=== PATIENT | female | born 1950 | race Caucasian/White ===

== ENCOUNTER 2017-10-21 10:29 | Emergency (ER) | payer MEDICARE ==
[2017-10-21 10:41] VITALS: RESP 18
--- NOTE | 2017-10-21 11:27 | XR ---
EXAMINATION TYPE: XR ankle complete LT , 3 VIEWS DATE OF EXAM ORDERED: 10/21/2017 HISTORY: Pain. COMPARISON: None. FINDINGS: No fracture, dislocation or ankle joint effusion is seen. IMPRESSION: NORMAL LEFT ANKLE.
--- NOTE | 2017-10-21 11:54 | ED ---
General Adult HPI - General Chief complaint: Extremity Injury, Lower Stated complaint: Fall Time Seen by Provider: 10/21/17 10:55 Source: patient, RN notes reviewed, old records reviewed Mode of arrival: wheelchair Limitations: no limitations - History of Present Illness Initial comments: This is a 67-year-old female the ER for evaluation of ankle pain left ankle pain. No significant history of ankle issues prior. Patient had a trip and fall last night down stairs, just was her ankle while going downstairs with her dog. Patient did not fall to ground, had some pain when ambulatory this morning has she thought she could sleep it off. No Motrin or Tylenol for pain. No other injuries noted - Related Data Home Medications Medication Instructions Recorded Confirmed Cholecalciferol [Vitamin D3] 2,000 unit PO DAILY 05/12/16 07/06/16 Flaxseed Oil 1,500 mg PO DAILY 05/12/16 07/06/16 Glucosamine Sulfate 500 mg PO BID 05/12/16 07/06/16 Allergies Allergy/AdvReac Type Severity Reaction Status Date / Time No Known Allergies Allergy Verified 10/21/17 10:41 Review of Systems ROS Statement: Those systems with pertinent positive or pertinent negative responses have been documented in the HPI. ROS Other: All systems not noted in ROS Statement are negative. Past Medical History Past Medical History: GERD/Reflux Additional Past Medical History / Comment(s): HISTORY OF PREVIOUS BRAIN ANEURYSM , describes pain worse than heartburn, stress incontinence History of Any Multi-Drug Resistant Organisms: None Reported Additional Past Surgical History / Comment(s): BRAIN SURGERY FOR ANEURYSM with clip Past Anesthesia/Blood Transfusion Reactions: No Reported Reaction Past Psychological History: No Psychological Hx Reported Smoking Status: Never smoker Past Alcohol Use History: Occasional Past Drug Use History: None Reported - Past Family History Mother Family Medical History: Cancer Additional Family Medical History / Comment(s): lung cancer Brother(s) Family Medical History: Diabetes Mellitus, Myocardial Infarction ([place]) Sister(s) Family Medical History: Diabetes Mellitus General Exam - General Exam Comments Initial Comments: Left lateral malleolus tenderness Limitations: no limitations General appearance: alert, in no apparent distress Head exam: Present: atraumatic, normocephalic, normal inspection Eye exam: Present: normal appearance, PERRL, EOMI. Absent: scleral icterus, conjunctival injection, periorbital swelling ENT exam: Present: normal exam, mucous membranes moist Neck exam: Present: normal inspection. Absent: tenderness, meningismus, lymphadenopathy Respiratory exam: Present: normal lung sounds bilaterally. Absent: respiratory distress, wheezes, rales, rhonchi, stridor Cardiovascular Exam: Present: regular rate, normal rhythm, normal heart sounds. Absent: systolic murmur, diastolic murmur, rubs, gallop, clicks GI/Abdominal exam: Present: soft, normal bowel sounds. Absent: distended, tenderness, guarding, rebound, rigid Extremities exam: Present: normal inspection, full ROM, normal capillary refill. Absent: tenderness, pedal edema, joint swelling, calf tenderness Back exam: Present: normal inspection Neurological exam: Present: alert, oriented X3, CN II-XII intact Psychiatric exam: Present: normal affect, normal mood Skin exam: Present: warm, dry, intact, normal color. Absent: rash Course Vital Signs 10/21/17 10:37 Temperature 97.9 F Pulse Rate 89 Respiratory 18 Rate Blood Pressure 132/63 O2 Sat by Pulse 98 Oximetry Medical Decision Making - Medical Decision Making 67 female the ER for evaluation of ankle pain left ankle pain x-ray negative for fracture, given ankle brace and discharged home - Radiology Data Radiology results: report reviewed (X-ray left ankle negative), image reviewed Disposition Clinical Impression: Left ankle sprain Disposition: HOME SELF-CARE Condition: Good Instructions: Ankle Sprain (ED) Referrals: Derrick Garcia MD [Primary Care Provider] - 1-2 days
[2017-10-21 12:50] VITALS: BP 124/66; PULSE 82; TEMP 98.1
== END 2017-10-21 12:51 | disposition home or self-care (01) ==
LOC: EC 10:29
DX: S93.402A Sprain of unspecified ligament of left ankle, initial encounter (principal); Z79.899 Other long term (current) drug therapy; W10.9XXA Fall (on) (from) unspecified stairs and steps, initial encounter; Y93.K1 Activity, walking an animal
CPT/HCPCS: 99284

== ENCOUNTER → 2019-01-31 | Outpatient (CLI) | payer MEDICARE ==
--- NOTE | 2019-01-31 07:48 | US ---
EXAMINATION TYPE: US abdomen complete DATE OF EXAM: 01/31/2019 COMPARISON: 2016 CLINICAL HISTORY: R10.13 EPIGASTRIC PAIN,R74.0 TRANSAMINASEMIA. EXAM MEASUREMENTS: Liver Length: 10.0 cm Gallbladder Wall: 0.2 cm CBD: 0.2 cm Spleen: 9.4 cm Right Kidney: 9.3 x 3.7 x 3.4 cm Left Kidney: 9.3 x 4.6 x 4.4 cm Pancreas: Tail obscured by overlying bowel gas Liver: wnl intercostally scanned Gallbladder: wnl Evidence for sonographic Rivera's sign: CBD: wnl Spleen: wnl Right Kidney: wnl Left Kidney: wnl Upper IVC: wnl Abd Aorta: wnl The visualized liver remains heterogeneously hyperechoic. Evaluation for focal masses or suboptimal d ue to the heterogeneity. The intrahepatic portion of the IVC and visualized abdominal aorta are withi n normal limits. There is no evidence of shadowing mobile cholelithiasis. Common bile duct is unrem arkable. The visualized portions of the pancreas are homogenous. The spleen is unremarkable. Kidne ys are symmetric and free of hydronephrosis. No renal lesions are seen on images saved. IMPRESSION: Diffuse fatty infiltration of liver redemonstrated.
== END | disposition home or self-care (01) ==
LOC: RADUSWWP 06:46
PROVIDERS: ATTEND Internal Medicine
DX: K76.0 Fatty (change of) liver, not elsewhere classified (principal); R74.0 Nonspecific elevation of levels of transaminase and lactic acid dehydrogenase [LDH]
CPT/HCPCS: 76700

== ENCOUNTER → 2020-02-12 | Outpatient (CLI) | payer MEDICARE ==
--- NOTE | 2020-02-12 14:40 | US ---
EXAMINATION TYPE: US liver DATE OF EXAM: 02/12/2020 COMPARISON: US 01/31/2019 CLINICAL HISTORY: Elevated live enzymes R94.05. Epigastric pain. Difficult and limited exam due to ov erlying bowel gas EXAM MEASUREMENTS: Liver Length: 13.8 cm Gallbladder Wall: 0.2 cm CBD: 0.6 cm Right Kidney: 9.2 x 3.9 x 4.6 cm Pancreas: Obscured by bowel gas Liver: Heterogeneous, coarse echotexture Gallbladder: wnl Evidence for sonographic Rivera's sign: No CBD: wnl as visualized Right Kidney: No hydronephrosis or masses seen IMPRESSION: 1. Visualized abdomen ultrasound is unremarkable.
== END | disposition home or self-care (01) ==
LOC: RADUSWWP 09:52
PROVIDERS: ATTEND Internal Medicine
DX: R94.5 Abnormal results of liver function studies (principal)
CPT/HCPCS: 76705

== ENCOUNTER → 2021-01-14 | Outpatient (CLI) | payer MEDICARE ==
--- NOTE | 2021-01-14 11:13 | CT ---
EXAMINATION TYPE: CT abdomen pelvis wo con DATE OF EXAM: 01/14/2021 COMPARISON: None HISTORY: 70-year-old female R10.9, left-sided flank pain CT DLP: 645 mGycm. Automated exposure control for dose reduction was used. TECHNIQUE: Contiguous axial scanning of the abdomen and pelvis without IV contrast. Coronal and sagit staci reconstructions performed. FINDINGS: Heart normal size without pericardial effusion. Some strandy atelectasis in lower lungs. No pleural e ffusion. Tiny hiatal hernia. Slightly low-attenuation of the hepatic parenchyma may reflect mild fatty infiltration. Otherwise, no ncontrast appearance of the gallbladder, adrenal glands, spleen, and pancreas within normal limits. T iny hilar splenule. Punctate 2 mm right upper pole renal calculus. Mild left-sided pelvocaliectasis. Suggestion of a tiny 1 mm mid left ureteral calculus, axial images 97. Possible 2 mm distal left ureteral calculus, axial image 136. No dilated small bowel, free fluid, or free air. No mesenteric or retroperitoneal lymphadenopathy. Mild stool in the colon. Normal appendix. Mild circumference wall thickening along the transverse col on suspected to be secondary to adherent stool material. Mild circumferential bladder wall thickening. Numerous pelvic fluid. Uterus anteverted. Both ovaries are visualized. No abnormal fluid collection in the pelvis or pelvic lymphadenopathy. Bones: Mild degenerative change at the hips. No osseous destructive process. IMPRESSION: 1. A tiny 1 mm mid left ureteral calculus and a second tiny 2 mm distal left ureteral calculus. Some left-sided pelvicaliectasis suggests very mild obstructive uropathy. 2. Punctate nonobstructive 2 mm right renal calculus. 3. Mild circumferential bladder wall thickening. This may be chronic for the patient. Correlate to e xclude cystitis.
== END | disposition home or self-care (01) ==
LOC: RADCTMAIN 08:29
PROVIDERS: ATTEND Internal Medicine
DX: N20.2 Calculus of kidney with calculus of ureter (principal); N28.89 Other specified disorders of kidney and ureter; N32.89 Other specified disorders of bladder
CPT/HCPCS: 74176

== ENCOUNTER → 2021-03-08 | Outpatient (CLI) | payer MEDICARE ==
--- NOTE | 2021-03-09 07:10 | US ---
EXAMINATION TYPE: US kidneys/renal and bladder DATE OF EXAM: 03/08/2021 COMPARISON: 01/14/2021, 02/12/2020 CLINICAL HISTORY: N20.1 Calculus of ureter. No pain per patient. EXAM MEASUREMENTS: Right Kidney: 8.9 x 4.5 x 4.0 cm Left Kidney: 10.8 x 4.2 x 4.5 cm Right Kidney: Appears smaller in size compared to contralateral kidney. Left Kidney: Upper pole cystic lesion in renal sinus= 0.9 x 0.9 x 0.9 cm. Bladder: distended, no wall thickening seen Bilateral Jets not seen IMPRESSION: No hydronephrosis or nephrolithiasis by ultrasound. Small hypoechoic lesion in the left renal sinus t oo small to characterize.
== END | disposition home or self-care (01) ==
LOC: RADUSWWP 16:13
PROVIDERS: ATTEND Urology
DX: N20.1 Calculus of ureter (principal)
CPT/HCPCS: 76770

== ENCOUNTER → 2021-12-29 | Outpatient (CLI) | payer MEDICARE ==
--- NOTE | 2021-12-29 10:48 | XR ---
KUB HISTORY: Calculus of kidney, left-sided pain Frontal KUB and 2 images, correlation to CT scan dated 02/03/2021 Overlying bowel gas may obscure detail. There are multiple calcifications seen within the pelvis many of which represent phleboliths. Difficult to exclude a distal left ureteral calculus. No evident bow el obstruction or pneumoperitoneum. Bone mineralization is normal. IMPRESSION: Indeterminate pelvic calcifications
== END | disposition home or self-care (01) ==
LOC: RADXRMAIN 09:55
PROVIDERS: ATTEND Urology
DX: N20.0 Calculus of kidney (principal)
CPT/HCPCS: 74018

== ENCOUNTER → 2022-02-17 | Outpatient (CLI) | payer MEDICARE ==
--- NOTE | 2022-02-17 16:26 | XR ---
Right shoulder HISTORY: Pain, limited range of motion 2 views the right shoulder Bone mineralization is reduced. Acromioclavicular joint shows arthropathy. Right lung apex as visuali zed shows some apical pleural thickening. No fracture or dislocation. IMPRESSION: There is some acromioclavicular joint arthropathy.
== END | disposition home or self-care (01) ==
LOC: RADXRMAIN 15:55
PROVIDERS: ATTEND Internal Medicine
DX: M19.011 Primary osteoarthritis, right shoulder (principal)

== ENCOUNTER → 2022-03-03 | Outpatient (CLI) | payer MEDICARE ==
[2022-03-03 13:29] VITALS: BMI 24.4
== END ==
LOC: DBWHC3 11:45
PROVIDERS: ATTEND Internal Medicine
DX: E11.9 Type 2 diabetes mellitus without complications (principal)
CPT/HCPCS: G0108 ×3

== ENCOUNTER 2023-01-28 20:41 | Emergency (ER) | payer MEDICARE ==
[2023-01-28 21:03] VITALS: BP 147/84; PULSE 79; RESP 18; TEMP 98.4
[2023-01-28] MEDS ORDERED: predniSONE 20 MG TAB PO STA (21:26)
[2023-01-28] MEDS ORDERED: FAMOTIDINE 20 MG TAB PO STA (21:26)
--- NOTE | 2023-01-28 21:28 | ED ---
General Adult HPI - General Chief complaint: Skin/Abscess/Foreign Body Stated complaint: Rash on back, legs, and arms Time Seen by Provider: 01/28/23 21:10 Source: patient Mode of arrival: ambulatory Limitations: no limitations - History of Present Illness Initial comments: 72-year-old female presents emergency department reporting rash. States it's be en going on since yesterday. She went to an urgent care where they prescribed her Diflucan and Clomitrazole. She took the Diflucan and used the cream however she took a nap and woke up with more lesions. She states that they are pruritic. She has been taking Benadryl. Denies any new exposures. No new foods, bath products. No history of ALLERGIES. Denies any nausea or vomiting. No cough or shortness of breath. No other alleviating, precipitating or modifying factors - Related Data Home Medications Medication Instructions Recorded Confirmed Cholecalciferol [Vitamin D3] 2,000 unit PO DAILY 05/12/16 07/06/16 Flaxseed Oil 1,500 mg PO DAILY 05/12/16 07/06/16 Glucosamine Sulfate 500 mg PO BID 05/12/16 07/06/16 Previous Rx's Medication Instructions Recorded predniSONE [Deltasone] 20 mg PO BID #10 tab 01/28/23 Allergies Allergy/AdvReac Type Severity Reaction Status Date / Time No Known Allergies Allergy Verified 01/28/23 21:03 Review of Systems ROS Statement: Those systems with pertinent positive or pertinent negative responses have been documented in the HPI. ROS Other: All systems not noted in ROS Statement are negative. Past Medical History Past Medical History: Diabetes Mellitus, GERD/Reflux Additional Past Medical History / Comment(s): HISTORY OF PREVIOUS BRAIN ANEURYSM, describes pain worse than heartburn, stress incontinence History of Any Multi-Drug Resistant Organisms: None Reported Additional Past Surgical History / Comment(s): BRAIN SURGERY FOR ANEURYSM with clip Past Anesthesia/Blood Transfusion Reactions: No Reported Reaction Past Psychological History: Anxiety Smoking Status: Never smoker Past Alcohol Use History: Occasional Past Drug Use History: None Reported - Past Family History Mother Family Medical History: Cancer Additional Family Medical History / Comment(s): lung cancer Brother(s) Family Medical History: Diabetes Mellitus, Myocardial Infarction ([place]) Sister(s) Family Medical History: Diabetes Mellitus General Exam Limitations: no limitations General appearance: alert, in no apparent distress Eye exam: Present: normal appearance, PERRL, EOMI. Absent: scleral icterus, conjunctival injection, periorbital swelling ENT exam: Present: normal exam, mucous membranes moist Respiratory exam: Present: normal lung sounds bilaterally. Absent: respiratory distress, wheezes, rales, rhonchi, stridor Neurological exam: Present: alert, oriented X3, CN II-XII intact Psychiatric exam: Present: normal affect, normal mood Skin exam: Present: rash (hives on abdomen, chest, few on arms) Course Vital Signs 01/28/23 20:59 Temperature 98.4 F Pulse Rate 79 Respiratory 18 Rate Blood Pressure 147/84 O2 Sat by Pulse 96 Oximetry Medical Decision Making - Medical Decision Making Was pt. sent in by a medical professional or institution (, PA, HAND ROLLER, urgent care, hospital, or half-way...) When possible be specific @ -No Did you speak to anyone other than the patient for history (EMS, parent, family, police, friend...)? What history was obtained from this source @ -No Did you review nursing and triage notes (agree or disagree)? Why? @ -I reviewed and agree with nursing and triage notes Were old charts reviewed (outside hosp., previous admission, EMS record, old EKG, old radiological studies, urgent care reports/EKG's, half-way records)? Report findings @ -No old charts were reviewed Differential Diagnosis (chest pain, altered mental status, abdominal pain women, abdominal pain men, vaginal bleeding, weakness, fever, dyspnea, syncope, headache, dizziness, GI bleed, back pain, seizure, CVA, palpatations, mental health, musculoskeletal)? @ -hives, shingles, ringworm, impetigo EKG interpreted by me (3pts min.). @ -Not done X-rays interpreted by me (1pt min.). @ -None done CT interpreted by me (1pt min.). @ -None done U/S interpreted by me (1pt. min.). @ -None done What testing was considered but not performed or refused? (CT, X-rays, U/S, labs)? Why? @ -None What meds were considered but not given or refused? Why? @ -None Did you discuss the management of the patient with other professionals (professionals i.e. , PA, HAND ROLLER, lab, RT, psych nurse, social studies teacher, manager online, teacher, nuclear officer, case making machine operator)? Give summary @ -No Was smoking cessation discussed for >3mins.? @ -No Was critical care preformed (if so, how long)? @ -No Were there social determinants of health that impacted care today? How? (Homelessness, low income, unemployed, alcoholism, drug addiction, transportation, low edu. Level, literacy, decrease access to med. care, usp, rehab)? @ -No Was there de-escalation of care discussed even if they declined (Discuss DNR or withdrawal of care, Hospice)? DNR status @ -No What co-morbidities impacted this encounter? (DM, HTN, Smoking, COPD, CAD, Cancer, CVA, ARF, Chemo, Hep., AIDS, mental health diagnosis, sleep apnea, morbid obesity)? @ -None Was patient admitted / discharged? Hospital course, mention meds given and route, prescriptions, significant lab abnormalities, going to OR and other pertinent info. @ -Upon arrival patient was placed into room 33. A thorough history and physical exam was performed. Patient's rash is consistent with urticaria. She is given a dose of prednisone. She'll be discharged home on 5 days of steroids. Instructed to continue taking Benadryl every 6 hours. Follow-up with her primary care doctor. May need to see an resident care provider if her symptoms continue and return for any new or worsening symptoms for patient was agreeable to plan and she was discharged in stable condition Undiagnosed new problem with uncertain prognosis? @ -No Drug Therapy requiring intensive monitoring for toxicity (Heparin, Nitro, Insulin, Cardizem)? @ -No Were any procedures done? @ -No Diagnosis/symptom? @ -acute contact dermatitis Acute, or Chronic, or Acute on Chronic? @ -acute Uncomplicated (without systemic symptoms) or Complicated (systemic symptoms)? @ -uncomplicated Side effects of treatment? @ -No Exacerbation, Progression, or Severe Exacerbation? @ -No Poses a threat to life or bodily function? How? (Chest pain, [place], [place], pneumonia, PE, COPD, DKA, ARF, appy, cholecystitis, CVA, Diverticulitis, Homicidal, Suicidal, threat to staff... and all critical care pts) @ -No Disposition Clinical Impression: Contact dermatitis Disposition: HOME SELF-CARE Condition: Stable Instructions (If sedation given, give patient instructions): Contact Dermatitis (ED) Additional Instructions: Continue taking Benadryl every 6 hours. Start taking the steroids twice a day starting tomorrow. Keep a log as to what you're exposed to. Follow-up with your doctor in 2-4 days and return for any new or worsening symptoms Prescriptions: predniSONE [Deltasone] 20 mg PO BID #10 tab Is patient prescribed a controlled substance at d/c from ED?: No Referrals: Karine Davis MD [Primary Care Provider] - 1-2 days Time of Disposition: 21:28
== END 2023-01-28 21:40 | disposition home or self-care (01) ==
LOC: EC 20:41
DX: L25.9 Unspecified contact dermatitis, unspecified cause (principal); E11.9 Type 2 diabetes mellitus without complications; F41.9 Anxiety disorder, unspecified; Z79.899 Other long term (current) drug therapy
CPT/HCPCS: 99282; J7512

== ENCOUNTER → 2023-07-24 | Outpatient (CLI) | payer MEDICARE ==
--- NOTE | 2023-07-26 20:41 | MR ---
EXAMINATION TYPE: MR liver wo/w con DATE OF EXAM: 07/24/2023 2:19 PM CLINICAL INDICATION:Female, 73 years old with history of K76.0 fatty liver disease, Non-alcoholic fat ty liver disease. COMPARISON: CT scan abdomen from 01/14/2021. Ultrasound 03/08/2021. TECHNIQUE: Multiplanar multi-sequence imaging was performed without contrast. Post contrast imaging was performed. Post IV contrast subtraction images were also submitted for review. IV Contrast: 6 cc Gadavist FINDINGS: LOWER CHEST: No gross irregularity. ABDOMEN Liver: No evidence for hepatic cirrhosis. Signal dropout on chemical shift imaging compatible with co nvexed steatosis. No arterial phase enhancing lesions identified. No observation that needs HCC crite luis e.. High T2 signal cyst in the left hepatic lobe measuring 3 mm. Gallbladder and Bile ducts: No evidence for ductal dilation, or biliary stricture or evidence of chol edocholithiasis. The gallbladder is within normal limits. Pancreas: No ductal dilation. No evidence for solid mass. Spleen: Normal for size. Adrenal glands: Unremarkable. Kidneys: Left renal sinus lesion seen on prior ultrasound is felt to correlate with parapelvic renal cyst. No suspicious left renal masses. No evidence for obstructive uropathy. No suspicious renal mass es. Peripelvic renal cysts on the left. There is extrarenal pelves bilaterally. Stomach and Bowel: No evidence for bowel wall thickening or evidence for obstruction.. Peritoneum: No evidence of pneumoperitoneum or free fluid. Vasculature: No aortic aneurysm. Musculoskeletal: The osseous structures appear intact. Lymph Nodes: No gross evidence for lymphadenopathy. Abdominal wall: Unremarkable. IMPRESSION: 1. No solid renal neoplasms. 2. Mild hepatic steatosis without evidence for suspicious observation period
== END | disposition home or self-care (01) ==
LOC: RADMRIMAIN 13:22
PROVIDERS: ATTEND Internal Medicine
DX: K76.0 Fatty (change of) liver, not elsewhere classified (principal)
CPT/HCPCS: 74183; A9585

== ENCOUNTER → 2024-02-20 | Outpatient (CLI) | payer MEDICARE | END | disposition home or self-care (01) | LOC: LABPRL 09:36 | PROVIDERS: ATTEND Internal Medicine | DX: Z00.00 Encounter for general adult medical examination without abnormal findings (principal); E78.2 Mixed hyperlipidemia; E11.22 Type 2 diabetes mellitus with diabetic chronic kidney disease; N18.1 Chronic kidney disease, stage 1; R35.0 Frequency of micturition | CPT/HCPCS: 80053; 80061; 81003; 82043; 82570; 83036; 84443; 85025 ==

== ENCOUNTER → 2024-05-13 | Outpatient (CLI) | payer MEDICARE ==
--- NOTE | 2024-05-13 10:26 | US ---
EXAMINATION TYPE: US gallbladder DATE OF EXAM: 05/13/2024 COMPARISON: MR Liver 2023, CT 2020, US 2019 CLINICAL INDICATION: Female, 73 years old with history of K81.1 CHRONIC CHOLECYSTITIS; Chronic cholec ystitis per order. TECHNIQUE: Grayscale and color Doppler imaging of the right upper quadrant. FINDINGS: EXAM MEASUREMENTS: Liver Length: 11.4 cm Gallbladder Wall: 0.19 cm CBD: 0.44 cm Right Kidney: 9.8 x 5.6 x 4.3 cm SENIOR CLINICAL RESEARCH SCIENTIST NOTES: Exam is limited due to gas. Pancreas: Obscured Liver: Heterogeneous, coarse echotexture, increased echogenicity Gallbladder: Appears anechoic, slightly limited due to gas. Evidence for sonographic Rivera's sign: No CBD: Portions seen appear wnl Right Kidney: No hydronephrosis or masses seen IMPRESSION: 1. No evidence for acute process. Gallbladder kumar are within normal limits for thickness. 2. Heterogenous liver correlate with serum markers for hepatocellular disease. [facility], , 05/13/2024 10:24 AM
== END | disposition home or self-care (01) ==
LOC: RADUSWWP 08:38
PROVIDERS: ATTEND Surgery
DX: K81.1 Chronic cholecystitis (principal)
CPT/HCPCS: 76705

== ENCOUNTER 2024-05-29 11:12 | Emergency (ER) | payer MEDICARE ==
[2024-05-29 11:24] VITALS: TEMP 97.3
[2024-05-29] MEDS: SODIUM CHLORIDE 0.9% 1,000 ML IV STA (11:59)
[2024-05-29] MEDS: KETOROLAC 15 MG/ML 1 ML VIAL IVP STA (12:00)
[2024-05-29] MEDS: ONDANSETRON 4 MG/2 ML VIAL IVP STA (12:00)
[2024-05-29 12:14] LABS: ALT 26 U/L (4-34); AST 37 U/L (14-36); African American GFR (CKD) >90 (>60 ml/min/1.73 sqM); Albumin 4.6 g/dL (3.5-5.0); Alkaline Phosphatase 168 U/L (38-126); Amylase 59 U/L (30-110); Anion Gap 9 mmol/L; Blood Urea Nitrogen 18 mg/dL (7-17); Calcium 9.7 mg/dL (8.4-10.2); Carbon Dioxide 25 mmol/L (22-30); Chloride 105 mmol/L (98-107); Glucose 201 mg/dL (74-99); Lipase 96 U/L (23-300); Non-African American GFR(CKD) 90 (>60 ml/min/1.73 sqM); Potassium 4.1 mmol/L (3.5-5.1); Sodium 139 mmol/L (137-145)
[2024-05-29 12:16] LABS: Basophils % (A) 1 %; Eosinophils # (A) 0.1 k/uL (0-0.7); Eosinophils % (A) 2 %; HCT 43.8 % (34.0-46.0); HGB 14.8 gm/dL (11.4-16.0); Lymphocytes # (A) 1.3 k/uL (1.0-4.8); Lymphocytes % (A) 39 %; MCH 35.1 pg (25.0-35.0); MCHC 33.9 g/dL (31.0-37.0); MCV 103.5 fL (80.0-100.0); Macrocytosis Slight; Mean Platelet Volume 7.9; Monocytes # (A) 0.2 k/uL (0-1.0); Monocytes % (A) 7 %; Neutrophils # (A) 1.7 k/uL (1.3-7.7); Neutrophils % (A) 48 %; Platelet Count 100 k/uL (150-450); RBC 4.23 m/uL (3.80-5.40); RDW 13.4 % (11.5-15.5); WBC 3.4 k/uL (3.8-10.6)
--- NOTE | 2024-05-29 12:43 | ED ---
Abdominal Pain HPI - General Chief Complaint: Abdominal Pain Stated Complaint: R side abd pain Time Seen by Provider: 05/29/24 12:42 Source: patient, RN notes reviewed, old records reviewed Mode of arrival: wheelchair Limitations: no limitations - History of Present Illness Initial Comments: 73-year-old female presented to the ER with a chief complaint of right upper quadrant abdominal pain. Patient states this been ongoing since December or January of this year. She has been following up with Dr. Young outpatient. Patient was scheduled for cholecystectomy for which that surgery was canceled patient is unknown to why. Patient had ultrasound completed here a couple of weeks ago for which patient states is both negative. Patient states this morning she had pancakes and eggs for breakfast with her prescribed medications. She states approximately 2 hours after breakfast she started to experience a sharp onset of right upper quadrant pain with nausea. She does report diarrhea this morning. Denies any hematochezia or melena. No fevers. Patient took ibuprofen for pain control prior to arrival. Patient denies any other complaints. - Related Data Home Medications Medication Instructions Recorded Confirmed Cholecalciferol [Vitamin D3] 2,000 unit PO DAILY 05/12/16 07/06/16 Flaxseed Oil 1,500 mg PO DAILY 05/12/16 07/06/16 Glucosamine Sulfate 500 mg PO BID 05/12/16 07/06/16 Previous Rx's Medication Instructions Recorded predniSONE [Deltasone] 20 mg PO BID #10 tab 01/28/23 Ketorolac [Toradol] 10 mg PO Q8HR #15 tab 05/29/24 Ondansetron Odt [Zofran Odt] 4 mg PO Q8HR PRN #10 tab 05/29/24 Allergies Allergy/AdvReac Type Severity Reaction Status Date / Time No Known Allergies Allergy Verified 05/29/24 11:23 Review of Systems ROS Statement: Those systems with pertinent positive or pertinent negative responses have been documented in the HPI. ROS Other: All systems not noted in ROS Statement are negative. Past Medical History Past Medical History: Diabetes Mellitus, GERD/Reflux Additional Past Medical History / Comment(s): HISTORY OF PREVIOUS BRAIN ANEURYSM, describes pain worse than heartburn, stress incontinence History of Any Multi-Drug Resistant Organisms: None Reported Additional Past Surgical History / Comment(s): BRAIN SURGERY FOR ANEURYSM with clip Past Anesthesia/Blood Transfusion Reactions: No Reported Reaction Past Psychological History: Anxiety Smoking Status: Never smoker Past Alcohol Use History: Occasional Past Drug Use History: None Reported - Past Family History Mother Family Medical History: Cancer Additional Family Medical History / Comment(s): lung cancer Brother(s) Family Medical History: Diabetes Mellitus, Myocardial Infarction ([place]) Sister(s) Family Medical History: Diabetes Mellitus General Exam Limitations: no limitations Course Vital Signs 05/29/24 05/29/24 11:20 14:04 Temperature 97.3 F L Pulse Rate 78 87 Respiratory 22 18 Rate Blood Pressure 137/78 122/64 O2 Sat by Pulse 99 98 Oximetry Medical Decision Making - Medical Decision Making Was pt. sent in by a medical professional or institution (, PA, SPLITTING MACHINE TENDER, urgent care, hospital, or long term...) When possible be specific @ -No Did you speak to anyone other than the patient for history (EMS, parent, family, police, friend...)? What history was obtained from this source @ -No Did you review nursing and triage notes (agree or disagree)? Why? @ -I reviewed and agree with nursing and triage notes Were old charts reviewed (outside hosp., previous admission, EMS record, old EKG, old radiological studies, urgent care reports/EKG's, long term records)? Report findings @ -Gallbladder ultrasound completed on 05-13-2024 showing no evidence of acute process. Gallbladder kumar within normal limits. Common bile duct 0.44 cm Differential Diagnosis (chest pain, altered mental status, abdominal pain women, abdominal pain men, vaginal bleeding, weakness, fever, dyspnea, syncope, headache, dizziness, GI bleed, back pain, seizure, CVA, palpatations, mental health, musculoskeletal)? @ -Differential Abdominal Pain Women:Appendicitis, Cholecystitis, diverticulosis, ischemic bowel, pancreatitis, hepatitis, UTI, gastroenteritis, AAA, incarcerated hernia, bowel obstruction, constipation, inflammatory bowel, hepatitis, peptic ulcer disease, splenic infarction, perforated viscus, vulvitis, ovarian torsion, PID, kidney stone, placenta abruption, this is not meant to be an all-inclusive list EKG interpreted by me (3pts min.). @ -None done X-rays interpreted by me (1pt min.). @ -None done CT interpreted by me (1pt min.). @ -None done U/S interpreted by me (1pt. min.). @ -Gallbladder ultrasound completed today showing a decompressed gallbladder. No evidence of stones. Common bile duct measuring 0.3 cm. Gallbladder wall 0.1 cm. What testing was considered but not performed or refused? (CT, X-rays, U/S, labs)? Why? @ -None What meds were considered but not given or refused? Why? @ -None Did you discuss the management of the patient with other professionals (pr ofessionals i.e. , PA, SPLITTING MACHINE TENDER, lab, RT, psych nurse, licensed social worker, public health sanitarian, teacher, patient safety officer, case management director)? Give summary @ -No Was smoking cessation discussed for >3mins.? @ -No Was critical care preformed (if so, how long)? @ -No Were there social determinants of health that impacted care today? How? (Homelessness, low income, unemployed, alcoholism, drug addiction, transportation, low edu. Level, literacy, decrease access to med. care, retirement, rehab)? @ -No Was there de-escalation of care discussed even if they declined (Discuss DNR or withdrawal of care, Hospice)? DNR status @ -No What co-morbidities impacted this encounter? (DM, HTN, Smoking, COPD, CAD, Cancer, CVA, ARF, Chemo, Hep., AIDS, mental health diagnosis, sleep apnea, morbid obesity)? @ -None Was patient admitted / discharged? Hospital course, mention meds given and route, prescriptions, significant lab abnormalities, going to OR and other pertinent info. @ -Discharged. 73 year old female presenting to the ER with a chief complaint of RUQ abdominal pain. History and physical exam completed. Vitals within normal limits. Patient in no signs of distress nontoxic-appearing. Exam remarkable for right upper quadrant abdominal tenderness to palpation with normal bowel sounds. No rebound or guarding. Otherwise exam benign. The patient her studies and gallbladder ultrasound will be obtained along with symptomatic control, patient is agreeable. CBC remarkable for WBC 3.4 which appears to be chronic in nature otherwise unimpressive. CMP unimpressive. Lactic 2.3 which patient was given IV fluid bolus. Patient symptomatic control with Toradol and Zofran, with improvement. Gallbladder ultrasound showing a decompressed gallbladder no evidence of stones. HIDA scan recommended. Upon reevaluation, patient resting comfortably on stretcher no signs of acute distress. Results discussed with patient, all questions answered. Symptoms believed to be due to biliary colic. Patient is eager for discharge. I advised her to follow-up closely with Dr. Young for further evaluation. Toradol and Zofran prescribed. Strict return parameters discussed. Patient discharged in stable condition with follow-up to PCP. Patient verbally expressed understanding and agreement with care plan. Case discussed with ED attending, Dr. Duran. Undiagnosed new problem with uncertain prognosis? @ -No Drug Therapy requiring intensive monitoring for toxicity (Heparin, Nitro, Insulin, Cardizem)? @ -No Were any procedures done? @ -No Diagnosis/symptom? @ -Biliary colic Acute, or Chronic, or Acute on Chronic? @ -Acute Uncomplicated (without systemic symptoms) or Complicated (systemic symptoms)? @ -Uncomplicated Side effects of treatment? @ -No Exacerbation, Progression, or Severe Exacerbation? @ -No Poses a threat to life or bodily function? How? (Chest pain, [place], [place], pneumonia, PE, COPD, DKA, ARF, appy, cholecystitis, CVA, Diverticulitis, Homicidal, Suicidal, threat to staff... and all critical care pts) @ -No - Lab Data Result diagrams: 05/29/24 11:54 05/29/24 11:54 Lab Results 05/29/24 05/29/24 05/29/24 Range/Units 11:54 11:54 11:54 WBC 3.4 L (3.8-10.6) k/uL RBC 4.23 (3.80-5.40) m/uL Hgb 14.8 (11.4-16.0) gm/dL Hct 43.8 (34.0-46.0) % MCV 103.5 H (80.0-100.0) fL MCH 35.1 H (25.0-35.0) pg MCHC 33.9 (31.0-37.0) g/dL RDW 13.4 (11.5-15.5) % Plt Count 100 L (150-450) k/uL MPV 7.9 Neutrophils % 48 % Lymphocytes % 39 % Monocytes % 7 % Eosinophils % 2 % Basophils % 1 % Neutrophils # 1.7 (1.3-7.7) k/uL Lymphocytes # 1.3 (1.0-4.8) k/uL Monocytes # 0.2 (0-1.0) k/uL Eosinophils # 0.1 (0-0.7) k/uL Basophils # 0.0 (0-0.2) k/uL Macrocytosis Slight Sodium 139 (137-145) mmol/L Potassium 4.1 (3.5-5.1) mmol/L Chloride 105 (98-107) mmol/L Carbon Dioxide 25 (22-30) mmol/L Anion Gap 9 mmol/L BUN 18 H (7-17) mg/dL Creatinine 0.63 (0.52-1.04) mg/dL Est GFR (CKD-EPI)AfAm >90 (>60 ml/min/1.73 sqM) Est GFR (CKD-EPI)NonAf 90 (>60 ml/min/1.73 sqM) Glucose 201 H (74-99) mg/dL Lactic Ac Sepsis Rflx Plasma Lactic Acid Willem 2.3 H* (0.7-2.0) mmol/L Calcium 9.7 (8.4-10.2) mg/dL Total Bilirubin 1.0 (0.2-1.3) mg/dL AST 37 H (14-36) U/L ALT 26 (4-34) U/L Alkaline Phosphatase 168 H (38-126) U/L Total Protein 7.0 (6.3-8.2) g/dL Albumin 4.6 (3.5-5.0) g/dL Amylase 59 (30-110) U/L Lipase 96 (23-300) U/L 05/29/ Range/Units 12:49 WBC (3.8-10.6) k/uL RBC (3.80-5.40) m/uL Hgb (11.4-16.0) gm/dL Hct (34.0-46.0) % MCV (80.0-100.0) fL MCH (25.0-35.0) pg MCHC (31.0-37.0) g/dL RDW (11.5-15.5) % Plt Count (150-450) k/uL MPV Neutrophils % % Lymphocytes % % Monocytes % % Eosinophils % % Basophils % % Neutrophils # (1.3-7.7) k/uL Lymphocytes # (1.0-4.8) k/uL Monocytes # (0-1.0) k/uL Eosinophils # (0-0.7) k/uL Basophils # (0-0.2) k/uL Macrocytosis Sodium (137-145) mmol/L Potassium (3.5-5.1) mmol/L Chloride (98-107) mmol/L Carbon Dioxide (22-30) mmol/L Anion Gap mmol/L BUN (7-17) mg/dL Creatinine (0.52-1.04) mg/dL Est GFR (CKD-EPI)AfAm (>60 ml/min/1.73 sqM) Est GFR (CKD-EPI)NonAf (>60 ml/min/1.73 sqM) Glucose (74-99) mg/dL Lactic Ac Sepsis Rflx Y Plasma Lactic Acid Willem (0.7-2.0) mmol/L Calcium (8.4-10.2) mg/dL Total Bilirubin (0.2-1.3) mg/dL AST (14-36) U/L ALT (4-34) U/L Alkaline Phosphatase (38-126) U/L Total Protein (6.3-8.2) g/dL Albumin (3.5-5.0) g/dL Amylase (30-110) U/L Lipase (23-300) U/L - Radiology Data Radiology results: report reviewed, image reviewed Disposition Clinical Impression: Biliary colic Disposition: HOME SELF-CARE Condition: Stable Instructions (If sedation given, give patient instructions): Biliary Colic (ED), HIDA Scan (DC) Additional Instructions: I recommend close follow-up with Dr. Davis and Dr. Young. Return to the ER for any new or worsening concerns. Prescriptions: Ketorolac [Toradol] 10 mg PO Q8HR #15 tab Ondansetron Odt [Zofran Odt] 4 mg PO Q8HR PRN #10 tab PRN Reason: Nausea Is patient prescribed a controlled substance at d/c from ED?: No Referrals: Karine Davis MD [Primary Care Provider] - 1-2 days Chucky Young MD [Medical Doctor] - 1-2 days Time of Disposition: 13:36
--- NOTE | 2024-05-29 13:00 | US ---
EXAMINATION TYPE: US gallbladder DATE OF EXAM: 05/29/2024 COMPARISON: Multiple, most recent = 05/13/2024 CLINICAL INDICATION: Female, 73 years old with history of RUQ abd pain; Patient states cholecystectom y was canceled TECHNIQUE: Grayscale and color Doppler imaging of the right upper quadrant was performed. FINDINGS: EXAM MEASUREMENTS: Liver Length: 11.4 cm Gallbladder Wall: 0.1 cm CBD: 0.3 cm Right Kidney: 10.5 x 4.3 x 5.0 cm TRAIN CONTROLLER NOTES: Pancreas: Tail obscured by overlying bowel gas Liver: wnl Gallbladder: wnl Evidence for sonographic Rivera's sign: No CBD: wnl Right Kidney: wnl IMPRESSION: Decompressed gallbladder. No evidence for stones. Consider HIDA scan if this concern for acute cholec ystitis. [facility], , 05/29/2024 12:58 PM
[2024-05-29 14:05] VITALS: BP 122/64; PULSE 87; RESP 18
== END 2024-05-29 14:07 | disposition home or self-care (01) ==
LOC: EC 11:12
DX: K80.50 Calculus of bile duct without cholangitis or cholecystitis without obstruction (principal)
CPT/HCPCS: 36415; 80053; 82150; 83605; 83690; 85025; 76705; 99284; 96374; 96375; 96361 ×2; J2405; J1885

== ENCOUNTER → 2024-07-15 | Outpatient (CLI) | payer MEDICARE ==
[2024-07-15 16:02] LABS: African American GFR (CKD) >90 (>60 ml/min/1.73 sqM); Blood Urea Nitrogen 19 mg/dL (7-17); Non-African American GFR(CKD) 86 (>60 ml/min/1.73 sqM)
--- NOTE | 2024-07-18 22:15 | CT ---
EXAMINATION TYPE: CT urogram wo/w con DATE OF EXAM: 07/15/2024 5:14 PM COMPARISON: 01/14/2021 CLINICAL INDICATION: Female, 74 years old with history of N13.30 UNSPECIFIED HYDRONEPHROSIS, Hydropne phrosis of left kidney. TECHNIQUE: Axial images were obtained from above the diaphragm to the pubic rami in the axial plane a t 5 mm thick sections. Reconstructed images are reviewed on the computer in the coronal plane. CONTRAST: 100cc mL of Isovue 300. Study performed DLP: 865.4 mGycm, Automated exposure control for dose reduction was used. FINDINGS: Limited CT sections are obtained the lung bases. The lung bases are clear. CT ABDOMEN: Liver: Normal Spleen: Normal Pancreas: Normal Adrenal glands: The adrenal glands are normal. Gallbladder: Normal Kidneys: No masses are evident. No hydronephrosis is present. Left-sided peripelvic cysts are prese nt. No hydronephrosis is evident Delayed images were obtained through the kidneys, which remain unre markable. Aorta: Normal Inferior vena cava: Normal. CT PELVIS: Loops of bowel within the abdomen and pelvis are normal. This study is without oral contrast limi ting bowel evaluation Appendix: Normal as visualized. Urinary bladder: Normal. Genitourinary structures: Uterus is normal. Adnexa are unremarkable Osseous structures: No suspicious lytic or sclerotic lesions. Urogram: Three-D reconstructed images performed by the technologist reviewed. Renal calyces infundibu la and renal pelves are normal. Ureters follow a normal caliber course and contour to the urinary faith dder on sequential images. Visualized urinary bladder appears unremarkable. IMPRESSION: 1. Left-sided peripelvic cysts. No hydronephrosis evident. [facility], , 07/18/2024 10:13 PM
== END | disposition home or self-care (01) ==
LOC: RADCTMAIN 14:59
PROVIDERS: ATTEND Urology
DX: N13.30 Unspecified hydronephrosis (principal); N28.89 Other specified disorders of kidney and ureter
CPT/HCPCS: 74178; 74400; 82565; 84520